=== PATIENT | female | born 1995 | race African-American/Black ===

== ENCOUNTER 2018-02-12 16:54 | Emergency (ER) | payer SELFPAY ==
[2018-02-12] MEDS ORDERED: Sodium Chloride 0.9% 100 ML ONE (18:39)
[2018-02-12] MEDS ORDERED: diphenhydrAMINE 50 MG/ML VIAL ONE (18:39)
[2018-02-12] MEDS ORDERED: Ketorolac Tromethamine 30 MG/ML VIAL ONE (18:39)
[2018-02-12] MEDS ORDERED: Metoclopramide HCl 10 MG/2 ML VIAL ONE (18:39)
--- NOTE | 2018-02-12 20:18 | CT ---
CT BRAIN 02/12/18 HISTORY: 22-year-old with history of new headache, vision changes. Noncontrast enhanced CT images of the brain is obtained from base of skull through the vertex. Brain and bone windows obtained. The calvarium is unremarkable. No evidence of acute intracranial masses, hemorrhages or strokes or co ntusions seen. Ventricles are of normal size. IMPRESSION: Normal CT brain. POS: [facility]
== END 2018-02-12 20:41 | disposition home or self-care (01) ==
LOC: ERS 16:54
DX: R51 Headache (principal); F17.210 Nicotine dependence, cigarettes, uncomplicated
CPT/HCPCS: 70450; 96374; 96375; J1200; J1885; J2765; J7050

== ENCOUNTER 2018-10-31 20:03 | Emergency (ER) | payer SELFPAY ==
[2018-10-31] MEDS ORDERED: Dicyclomine 20 MG TAB ONE (20:33)
[2018-10-31] MEDS ORDERED: Ondansetron ODT 4 MG TAB ONE (20:33)
== END 2018-10-31 21:05 | disposition home or self-care (01) ==
LOC: ERS 20:03
DX: R11.2 Nausea with vomiting, unspecified (principal); R19.7 Diarrhea, unspecified; F17.210 Nicotine dependence, cigarettes, uncomplicated
CPT/HCPCS: 99283; Q0162

== ENCOUNTER 2018-12-04 20:17 | Emergency (ER) | payer SELFPAY | END 2018-12-04 21:06 | disposition home or self-care (01) | LOC: ERS 20:17 | DX: R11.2 Nausea with vomiting, unspecified (principal); R19.7 Diarrhea, unspecified; L13.0 Dermatitis herpetiformis; F17.210 Nicotine dependence, cigarettes, uncomplicated | CPT/HCPCS: 99283 ==

== ENCOUNTER 2019-05-06 08:55 | Emergency (ER) | payer SELFPAY ==
[2019-05-06] MEDS ORDERED: Lidocaine 1% (PF) 30 ML VIAL ONE (11:46)
== END 2019-05-06 12:11 | disposition home or self-care (01) ==
LOC: ERS 08:55
DX: L73.9 Follicular disorder, unspecified (principal); F17.210 Nicotine dependence, cigarettes, uncomplicated
CPT/HCPCS: 99282; J2001

== ENCOUNTER 2020-09-22 08:26 | Emergency (ER) | payer SELFPAY ==
[2020-09-22] MEDS ORDERED: Ketorolac Tromethamine 30 MG/ML VIAL ONE (08:53)
[2020-09-22 10:02] LABS: RBC/HPF 0-3 HPF (0-3)
[2020-09-22 10:04] LABS: Bilirubin Unable to Interpret (Negative); Blood, Urine Unable to Interpret (Negative); Clarity Clear (Clear); Glucose, Urine (Dipstick) Unable to Interpret mg/dL (Negative); Ketone, Urine Unable to Interpret mg/dL (Negative); Leukocyte Unable to Interpret Leu/uL (Negative); Nitrite Unable to Interpret (Negative); Protein, Urine (Dipstick) Negative (Neg-Trace); Urobilinogen UNABLE TO INTERPRET mg/dL (Less than 2)
[2020-09-22 10:05] LABS: Bacteria/HPF 1+ HPF (None Seen)
[2020-09-22 10:05] LABS: #Eosinphils 0.1 thou/uL (0.0-0.7); #Lymphocytes 1.3 thou/uL (1.20-3.40); #Monocytes 0.8 thou/uL (0.11-0.59); #Neutrophils 10.6 thou/uL (1.40-6.50); %Basophils 0.2 % (0.0-1.0); %Eosinophils 0.9 % (0.0-10.0); %Lymphocytes 10.4 % (21.0-51.0); %Monocytes 6.2 % (0.0-10.0); %Neutrophils 82.3 % (42.0-75.0); Hemoglobin 11.6 g/dL (12.0-16.0); Mean Corpuscular HGB CONC 32.5 g/dL (32.0-36.0); Mean Corpuscular Hemoglobin 30.3 pg (27.0-31.0); Mean Corpuscular Volume 93.3 fL (78.0-98.0); Mean Platelet Volume 6.5 fL (7.4-10.4); Platelet Count 336 thou/uL (130-400); RBC Distribution Width 10.9 % (11.5-14.5); Red Blood Cell (RBC) Count 3.82 mill/uL (4.20-5.40); White Blood Cell (WBC) Count 12.9 thou/uL (4.8-10.8)
[2020-09-22 10:06] LABS: Pregnancy Test - Urine (BHCG) Negative (Negative); Pregu Control Background? CLEAR/WHITE (CLR/WHITE); Pregu Control Bar Appear? YES (CONTROL BAR)
[2020-09-22 10:27] LABS: ALT (SGPT) Less than 7 U/L (8-55); AST (SGOT) 12 U/L (5-34); Albumin 3.9 g/dL (3.5-5.0); Alkaline Phosphatase 60 U/L (40-110); Anion Gap 15 mmol/L (10-20); BUN (Urea Nitrogen) 9 mg/dL (7.0-18.7); Bilirubin, Total 0.2 mg/dL (0.2-1.2); Calc. Creatinine Clearance 0 mL/min (70-130); Calcium 9.1 mg/dL (7.8-10.44); Carbon Dioxide 23 mmol/L (22-29); Chloride 104 mmol/L (98-107); Globulin 3.9 g/dL (2.4-3.5); Glucose 91 mg/dL (70-105); Lipase 14 U/L (8-78); Potassium 3.8 mmol/L (3.5-5.1); Protein, Total 7.8 g/dL (6.0-8.3); Sodium 138 mmol/L (136-145)
[2020-09-22] MEDS ORDERED: Acetaminophen 500 MG TAB ONE (11:16)
== END 2020-09-22 11:28 | disposition home or self-care (01) ==
LOC: ERS 08:26
DX: N10 Acute pyelonephritis (principal)
CPT/HCPCS: 36415; 80053; 81003; 81015; 81025; 83690; 85025; 99283; J1885

== ENCOUNTER 2021-05-13 13:01 | Emergency (ER) | payer SELFPAY ==
[2021-05-13] MEDS ORDERED: Metoclopramide HCl 10 MG TAB ONE (13:49)
[2021-05-13] MEDS ORDERED: Acetaminophen 500 MG TAB ONE (13:49)
[2021-05-13 13:58] LABS: Bacteria/HPF None Seen HPF (None Seen); Bilirubin Negative (Negative); Blood, Urine Negative (Negative); Clarity Clear (Clear); Glucose, Urine (Dipstick) Normal (Negative); Ketone, Urine Greater than 150 mg/dL (Negative); Leukocyte Negative Leu/uL (Negative); Nitrite Negative (Negative); Pregnancy Test - Urine (BHCG) Negative (Negative); Pregu Control Background? CLEAR/WHITE (CLR/WHITE); Pregu Control Bar Appear? YES (CONTROL BAR); Protein, Urine (Dipstick) 100 mg/dL (Neg-Trace); RBC/HPF 0-3 HPF (0-3); Specific Gravity 1.037 (1.002-1.036); Specific Gravity, Urine 1.037 (1.002-1.036); WBC/HPF 0-3 HPF (0-3); pH, Urine 6.5 (5.0-9.0)
[2021-05-13 14:43] LABS: BHCG - Serum POSITIVE (NEGATIVE); Pregs Control Background? CLEAR/WHITE (CLR/WHITE); Pregs Control Bar Appear? YES (CONTROL BAR)
== END 2021-05-13 14:53 | disposition home or self-care (01) ==
LOC: ERS 13:01
DX: O21.9 Vomiting of pregnancy, unspecified (principal); Z3A.00 Weeks of gestation of pregnancy not specified; Z87.891 Personal history of nicotine dependence
CPT/HCPCS: 36415; 81003; 81015; 81025; 84703; 99284

== ENCOUNTER 2021-05-14 09:00 | Emergency (ER) | payer MEDICAID, SELFPAY ==
[2021-05-14] MEDS ORDERED: Metoclopramide HCl 10 MG/2 ML VIAL ONE (10:40)
[2021-05-14 11:09] LABS: Bacteria/HPF None Seen HPF (None Seen); Bilirubin Negative (Negative); Blood, Urine Negative (Negative); Clarity Clear (Clear); Glucose, Urine (Dipstick) Normal (Negative); Ketone, Urine Greater than 150 mg/dL (Negative); Leukocyte Negative Leu/uL (Negative); Nitrite Negative (Negative); Protein, Urine (Dipstick) 30 mg/dL (Neg-Trace); RBC/HPF 0-3 HPF (0-3); Specific Gravity, Urine 1.028 (1.002-1.036); Squamous Epithelial 0-3 HPF (0-3); Urobilinogen Normal mg/dL (Less than 2); WBC/HPF 0-3 HPF (0-3)
[2021-05-14 12:13] LABS: ALT (SGPT) 17 U/L (8-55); AST (SGOT) 20 U/L (5-34); Albumin 4.4 g/dL (3.5-5.0); Alkaline Phosphatase 51 U/L (40-110); Anion Gap 19 mmol/L (10-20); BUN (Urea Nitrogen) 12 mg/dL (7.0-18.7); Bilirubin, Total 0.4 mg/dL (0.2-1.2); Calc. Creatinine Clearance 0 mL/min (70-130); Calcium 9.9 mg/dL (7.8-10.44); Carbon Dioxide 16 mmol/L (22-29); Chloride 103 mmol/L (98-107); Globulin 3.5 g/dL (2.4-3.5); Glucose 81 mg/dL (70-105); Potassium 3.9 mmol/L (3.5-5.1); Protein, Total 7.9 g/dL (6.0-8.3); Sodium 134 mmol/L (136-145)
[2021-05-14 12:16] LABS: #Monocytes 0.5 thou/uL (0.11-0.59); #Neutrophils 7.1 thou/uL (1.40-6.50); %Basophils 0.2 % (0.0-1.0); %Eosinophils 0.1 % (0.0-10.0); %Lymphocytes 11.9 % (21.0-51.0); %Monocytes 5.6 % (0.0-10.0); %Neutrophils 82.1 % (42.0-75.0); Hemoglobin 12.7 g/dL (12.0-16.0); Mean Corpuscular HGB CONC 34.4 g/dL (32.0-36.0); Mean Corpuscular Hemoglobin 32.1 pg (27.0-31.0); Mean Corpuscular Volume 93.3 fL (78.0-98.0); Mean Platelet Volume 6.9 fL (7.4-10.4); Platelet Count 227 thou/uL (130-400); RBC Distribution Width 10.8 % (11.5-14.5); Red Blood Cell (RBC) Count 3.95 mill/uL (4.20-5.40); White Blood Cell (WBC) Count 8.6 thou/uL (4.8-10.8)
[2021-05-14] MEDS ORDERED: Acetaminophen 500 MG TAB ONE ×2 (13:00)
== END 2021-05-14 13:08 | disposition home or self-care (01) ==
LOC: ERS 09:00
DX: O99.891 Other specified diseases and conditions complicating pregnancy (principal); R11.2 Nausea with vomiting, unspecified; Z3A.01 Less than 8 weeks gestation of pregnancy; O99.331 Smoking (tobacco) complicating pregnancy, first trimester
CPT/HCPCS: 80053; 81003; 84702; 85025; 93005; 96374; J2765